=== PATIENT | female | born 1985 | race African-American/Black ===

== ENCOUNTER 2023-01-22 07:20 | Emergency (ER) | payer MEDICAID ==
[~2023-01-22] VITALS: Ht 185.4 cm; Wt 113.5 kg
[~2023-01-22 07:20] MED LIST: ALBU108A5 IN; AUG875T PO; PROM1SOL4 PO
[2023-01-22] MEDS ORDERED: DICYCLOMINE HCL (10MG/ML) 2 ML AMPULE IM ONE (07:45)
[2023-01-22] MEDS ORDERED: SODIUM CHLORIDE 0.9% 1,000 ML IV ONE (07:45)
[2023-01-22 07:50] LABS: Basophils # (auto) 0 10 ^3/uL (0-0.2); Eosinophils # (auto) 0 10 ^3/uL (0-0.8); Eosinophils % (auto) 0.2 % (0.0-7.0); Hematocrit 43.9 % (36.0-46.0); Hemoglobin 14.4 g/dL (12.2-16.2); Lymphocytes # (auto) 2.2 10 ^3/uL (0.4-5.4); Lymphocytes % (auto) 53.4 % (10.0-50.0); Mean Corpuscular Hemoglobin 28.1 pg (28.0-32.0); Mean Corpuscular Hgb Conc. 32.9 g/dL (32.0-36.0); Mean Corpuscular Volume 85.5 fL (80.0-100.0); Monocytes # (auto) 0.4 10 ^3/uL (0-1.3); Monocytes % (auto) 10.4 % (0.0-12.0); Neutrophils # (auto) 1.4 10 ^3/uL (1.6-8.6); Nucleated Red Blood Cells % 0.2 %; Red Blood Cells 5.14 10^6/uL (4.0-5.20); Red Cell Distribution Width 16.2 % (11.8-14.3)
[2023-01-22 08:06] LABS: Alanine Aminotransferase 21 U/L (7-40); Alkaline Phosphatase 63 U/L (46-116); Amylase 74 U/L (30-118); Anion Gap 10 (5-15); BUN/Creatinine Ratio 7.9 (10.0-20.0); Blood Urea Nitrogen 8 mg/dL (9-23); Calcium 9.2 mg/dL (8.5-10.1); Carbon Dioxide 21 mmol/L (20-30); Chloride 107 mmol/L (98-107); Glucose 100 mg/dL (74-106); Potassium 3.3 mmol/L (3.5-5.1); Sodium 138 mmol/L (136-145)
[2023-01-22 08:07] LABS: Albumin 4.8 g/dL (3.2-4.8); Aspartate Aminotransferase 29 U/L (13-40); Bilirubin, Direct 0.2 mg/dL (<0.3); Bilirubin, Total 0.4 mg/dL (0.2-1.0); Total Protein 7.9 g/dL (5.7-8.2)
[2023-01-22] MEDS ORDERED: POTASSIUM CHL 20MEQ/100ML 100 ML IV ONE (08:30)
[2023-01-22 09:09] LABS: Lipase 41 U/L (12-53); Magnesium 2.1 mg/dL (1.6-2.6)
[2023-01-22 10:25] LABS: Urine Bacteria NONE SEEN /hpf (None Seen); Urine Blood 3+ /uL (Negative); Urine Clarity HAZY (Clear); Urine Color Red (Yellow); Urine Hyaline Cast MOD /lpf (0 - 2); Urine Mucus MANY (None Seen); Urine Protein, UAD 2+ (Negative); Urine Specific Gravity 1.037 (1.001-1.035); Urine WBC 20 /hpf (0 - 5); Urine WBC Clumps PRESENT /hpf (None Seen)
[2023-01-22] MEDS ORDERED: DICY10CA PO (10:26)
[2023-01-22] MEDS ORDERED: ZOFR4T PO (10:26)
[2023-01-22] MEDS ORDERED: NAPR-591 PO (10:26)
[2023-01-22] MEDS ORDERED: POTA10TA51 PO (10:27)
[2023-01-22] MEDS ORDERED: ONDANSETRON HCL 4 MG/2 ML VIAL IV ONE (10:30)
[2023-01-22] MEDS ORDERED: POTASSIUM EFFERVESENT TAB 25 MEQ PO ONE (10:30)
[2023-01-22 10:38] LABS: Amphetamine Screen, Urine Neg (NEGATIVE); Barbiturate Scree,Urine Neg (NEGATIVE); Benzodiazephine Screen, Urine Neg (NEGATIVE); Cocaine Screen, Urine Neg (NEGATIVE)
[2023-01-22 10:39] LABS: Cannabinoid Screen, Urine Pos (NEGATIVE); Opiate Scree,Urine Neg (NEGATIVE); Phencyclidine Screen, Urine Neg (NEGATIVE)
[2023-01-22 10:42] VITALS: BP 120/57; PULSE 85; RESP 18; TEMP 97.9; O2SAT 100
== END 2023-01-22 11:52 | disposition home or self-care (01) ==
LOC: ER 07:20
DX: E87.6 Hypokalemia (principal); R10.2 Pelvic and perineal pain; R10.11 Right upper quadrant pain; R10.31 Right lower quadrant pain; J45.909 Unspecified asthma, uncomplicated; F15.90 Other stimulant use, unspecified, uncomplicated; Z98.890 Other specified postprocedural states; Z79.899 Other long term (current) drug therapy
CPT/HCPCS: 36415; 74176; 76705; 80053; 80307; 81001; 82150; 82248; 83690; 83735; 84702; 85025; 96361; 96372; 96374; 99285; J0500; J2405; J7030

== ENCOUNTER 2023-07-29 17:41 | Emergency (ER) | payer MEDICAID ==
[~2023-07-29] VITALS: Ht 185.4 cm; Wt 108.3 kg
[~2023-07-29 17:41] MED LIST changes: +DICY10CA PO; +NAPR-591 PO; +POTA-36 PO; +ZOFR4T PO
[2023-07-29 18:11] VITALS: BP 107/70; PULSE 82; RESP 18; TEMP 98.9; O2SAT 100
[2023-07-29] MEDS ORDERED: PRED20TA2 PO (21:28)
[2023-07-29] MEDS ORDERED: ACET500T58 PO (21:28)
[2023-07-29] MEDS ORDERED: AMOX875T4 PO (21:28)
[2023-07-29] MEDS: cefTRIAXone SOD 1,000 MG VL IM ONE (21:37)
[2023-07-29] MEDS: ACETAMINOPHEN 325 MG TAB PO ONE (21:38)
[2023-07-29] MEDS: DexAMETHasone SOD PHOS 10MG/1ML VIAL INJ IM ONE (21:39)
== END 2023-07-29 21:46 | disposition home or self-care (01) ==
LOC: ER 17:41
DX: J20.8 Acute bronchitis due to other specified organisms (principal); J03.90 Acute tonsillitis, unspecified; H66.92 Otitis media, unspecified, left ear; R59.0 Localized enlarged lymph nodes; J45.909 Unspecified asthma, uncomplicated; F15.90 Other stimulant use, unspecified, uncomplicated; Z98.890 Other specified postprocedural states; Z79.899 Other long term (current) drug therapy
CPT/HCPCS: 96372; 99284; J0696; J1100